=== PATIENT | male | born 1980 | race Caucasian/White ===

== ENCOUNTER 2019-08-10 20:09 | Emergency (ER) | payer SELFPAY ==
[2019-08-10] MEDS ORDERED: BENZONATATE 100 MG CAPSULE PO STA (20:26)
[2019-08-10] MEDS ORDERED: ACETAMINOPHEN 325 MG TABLET PO STA (20:26)
--- NOTE | 2019-08-10 20:30 | ED Physician Documentation ---
History of Present Illness - Stated complaint Stated Complaint: CP/LIMBS HOT AND COLD/COUGH - Chief complaint Chief Complaint: Cardiac - Additonal information Additional information: This is a 39-year-old male with history of diabetes who presents with some chest discomfort after coughing fit. Patient has had coughing fits for the last 3 to 4 weeks, he states that at times he will cough repeatedly to the point where he will throw up or feel lightheaded. Tonight he coughed so long that he felt very lightheaded like he was on the verge of passing out. Now he has some soreness along the base of his ribs, he also feels like his extremities are hot and cold. He denies any known cardiac history. He is not currently taking medications for his diabetes because he had not been able to see her primary care provider recently. Review of Systems Constitutional: denies: Fever Nose: denies: Rhinorrhea / runny nose Throat: denies: Sore throat Cardiac: reports: Chest pain / pressure Respiratory: reports: Cough. denies: Dyspnea GI: denies: Abdominal Pain : denies: Dysuria Skin: denies: Rash PD PAST MEDICAL HISTORY - Past Medical History Cardiovascular: Hypertension Endocrine/Autoimmune: Type 2 diabetes GI: GERD, Chronic diarrhea - Past Surgical History Past Surgical History: No - Present Medications Home Medications: Ambulatory Orders Medication Instructions Recorded Confirmed Lisinopril 10 mg PO DAILY #30 tablet 02/13/15 08/05/15 raNITIdine HCl [Zantac] 150 mg PO BID 28 Days tablet 02/13/15 08/05/15 metFORMIN [Glucophage] 1,000 mg PO BIDWM 07/03/15 08/05/15 HYDROcod/ACETAM 5/325 [[place] 5/325] 1 - 2 ea PO Q6H PRN #10 tablet 08/05/15 Ondansetron HCl [Zofran] 4 mg PO Q6H PRN #10 tablet 08/05/15 Pravastatin Sodium 40 mg PO DAILY 08/05/15 08/05/15 Esomeprazole Magnesium [Nexium] 40 mg PO DAILY #30 capsule. 03/20/16 Famotidine [Pepcid] 20 mg PO BID #30 tablet 03/20/16 Hydrocodone/Acetaminophen 1 - 2 each PO Q6H PRN #10 tablet 03/20/16 [Hydrocodon-Acetaminophen 5-325] Ondansetron Odt [Zofran] 4 mg TL Q6H PRN #10 tablet 03/20/16 Benzonatate 200 mg PO TID PRN #21 capsule 08/10/19 Blood Sugar Diagnostic [Glucometer 1 each MC TID #30 strip 08/10/19 Strips] Blood-Glucose Meter [Glucometer] 1 each MC TID #1 each 08/10/19 metFORMIN [Glucophage] 500 mg PO BIDWM #60 tablet 08/10/19 - Allergies Allergies/Adverse Reactions: Allergies Allergy/AdvReac Type Severity Reaction Status Date / Time Sulfa (Sulfonamide Allergy Unknown Verified 08/10/19 20:13 Antibiotics) - Social History Does the pt smoke?: Yes Smoking Status: Current every day smoker Does the pt drink ETOH?: No Does the pt have substance abuse?: Yes - Immunizations Immunizations are current?: Yes - POLST Patient has POLST: No PD ED PE NORMAL - Vitals Vital signs reviewed: Yes - General General: Alert and oriented X 3, No acute distress - HEENT HEENT: PERRL - Neck Neck: Supple, no meningeal sign - Cardiac Cardiac: RRR, No murmur - Respiratory Respiratory: Clear bilaterally - Abdomen Abdomen: Soft, Non tender, Non distended - Derm Derm: Warm and dry - Extremities Extremities: No deformity - Neuro Neuro: Alert and oriented X 3 - Psych Psych: Normal mood, Normal affect Results - Vitals Vitals: Vital Signs - 24 hr 08/10/19 08/10/19 20:13 21:16 Temperature 36.5 C Heart Rate 84 72 Respiratory 18 18 Rate Blood Pressure 170/92 H 138/77 H O2 Saturation 96 95 Oxygen O2 Source Room air - EKG (time done) 20:12 Other comments: Other comments (Rate 81, rhythm sinus, there is less than [address] elevation in V2 V3, within normal limits for patient's age and sex, there are no abnormal T wave inversions, no ST depressions, QTC 402) - Labs Labs: Laboratory Tests 08/10/19 08/10/19 08/10/19 20:26 20:26 20:26 WBC 14.7 H RBC 6.21 H Hgb 19.0 H Hct 53.9 H MCV 86.8 MCH 30.6 MCHC 35.3 RDW 12.5 Plt Count 318 MPV 9.4 Neut # (Auto) 9.4 H Lymph # (Auto) 4.1 H [place] # (Auto) 0.8 Eos # (Auto) 0.2 Baso # (Auto) 0.1 Absolute Nucleated RBC 0.00 Nucleated RBC % 0.0 Sodium 133 L Potassium 3.6 Chloride 99 L Carbon Dioxide 22 Anion Gap 12.0 BUN 12 Creatinine 0.9 Estimated GFR (MDRD) 94 Glucose 297 H Calcium 9.1 Total Bilirubin 0.5 AST 29 ALT 36 Alkaline Phosphatase 61 Troponin I High Sens 7.1 Total Protein 7.3 Albumin 3.8 Globulin 3.5 Albumin/Globulin Ratio 1.1 Lipase 34 - Rads (name of study) CXR Radiology: Other (No acute cardiopulmonary abnormality) PD MEDICAL DECISION MAKING - ED course Complexity details: considered differential (ACS, dysrhythmia, muscle strain, pertussis, URI, gastritis, cholecystitis, pancreatitis) ED course: Patient is well-appearing on exam, lungs are clear and vital signs are unremarkable. His EKG shows no convincing signs of ischemia or dysrhythmia, chest x-ray shows no acute cardiopulmonary abnormality. Labs show hyperglycemia as well as signs of dehydration with an elevated hemoglobin. He does have an elevated white blood cell count, but he has no signs of pneumonia, his abdomen is nontender on repeat evaluation, he has no focal right upper quadrant tenderness, and given his pain began after coughing, I highly doubt abdominal acute pathology. This may be demargination from the coughing fit and stress, additionally his dehydration may be contributing to this as well. He was given Tessalon Perles as well as Tylenol, and he had very good improvement in his symptoms. His high-sensitivity troponin is negative, and overall his presentation is more concerning for strain or pertussis (now weeks out, no abx tx indicated) given that his discomfort began after coughing. I did discuss with him that he needs to follow-up with his primary care provider, and is he needs to restart his diabetes medications. I did give him prescription for his metformin as well as a glucometer and test strips, as well as Tessalon Perles for his symptoms. Patient agrees with this plan, and after reviewing precautions with him he was discharged home in the care of family. Departure - Departure Disposition: 01 Home, Self Care Clinical Impression: Chest pain, Hyperglycemia Condition: Good Instructions: ED Chest Pain Atypical Unkn Cause Follow-Up: Your,PCP [Other] - Within 1 week Prescriptions: Benzonatate 200 mg PO TID PRN #21 capsule PRN Reason: Cough Blood Sugar Diagnostic [Glucometer Strips] 1 each MC TID #30 strip Blood-Glucose Meter [Glucometer] 1 each MC TID #1 each metFORMIN [Glucophage] 500 mg PO BIDWM #60 tablet Comments: You were seen today for some chest pain after coughing. We do not see signs of rib fractures/pneumonia, or strain in your heart on your work up. You do have elevated blood sugar, your sugar was 297 today. You also looked a little bit dehydrated on your labs. Please drink plenty of fluids, restart her metformin, and follow-up with your primary care provider as soon as possible for further evaluation and treatment of your diabetes. If you are developing shortness of breath, increased abdominal pain, increasing chest pain, or any other concerning symptoms return to the emergency department
[2019-08-10 20:33] LABS: BASOPHILS # (AUTO) 0.1 10^3/uL (0.0-0.1); BASOPHILS % (AUTO) 0.7 %; EOSINOPHILS # (AUTO) 0.2 10^3/uL (0.0-0.7); EOSINOPHILS % (AUTO) 1.2 %; LYMPHOCYTES # (AUTO) 4.1 10^3/uL (1.5-3.5); LYMPHOCYTES % (AUTO) 27.8 %; MEAN CORPUSCULAR HEMOGLOBIN 30.6 pg (27.0-31.0); MEAN CORPUSCULAR HGB CONC 35.3 g/dL (32.0-36.0); MEAN CORPUSCULAR VOLUME 86.8 fL (80.0-94.0); MEAN PLATELET VOLUME 9.4 fL (7.4-11.4); MONOCYTES # (AUTO) 0.8 10^3/uL (0.0-1.0); MONOCYTES % (AUTO) 5.5 %; NEUTROPHILS # (AUTO) 9.4 10^3/uL (1.5-6.6); NEUTROPHILS % (AUTO) 64.1 %; PLT - PLATELET COUNT 318 10^3/uL (130-450); RED BLOOD COUNT 6.21 10^6/uL (4.70-6.10); RED CELL DISTRIBUTION WIDTH 12.5 % (12.0-15.0); WHITE BLOOD COUNT 14.7 x10^3/uL (4.8-10.8)
[2019-08-10 20:49] LABS: ALBUMIN 3.8 g/dL (3.2-5.5); ALBUMIN/GLOBULIN RATIO 1.1 (1.0-2.2); BILIRUBIN,TOTAL 0.5 mg/dL (0.2-1.0); CALCIUM 9.1 mg/dL (8.5-10.3); CREATININE 0.9 mg/dL (0.6-1.2); TOTAL PROTEIN 7.3 g/dL (6.7-8.2)
[2019-08-10 21:19] VITALS: BP 138/77
--- NOTE | 2019-08-10 21:32 | XRAY Report ---
Reason: cough Procedure Date: 08/10/2019 Accession Number: [id number] / [id number] Procedure: XR - Chest 2 View X-Ray CPT Code: 60247 Final Report FULL RESULT: EXAM: CHEST RADIOGRAPHY EXAM DATE: 08/10/2019 08:57 PM. CLINICAL HISTORY: Cough. COMPARISON: Chest radiograph from 03/20/2016. TECHNIQUE: 2 views. FINDINGS: Lungs/Pleura: No focal airspace opacities. No pleural effusion or pneumothorax. Mediastinum: Cardiomediastinal silhouette is within normal limits. Pulmonary vasculature is unremarkable. Other: None. IMPRESSION: No acute cardiopulmonary abnormality. [facility]
== END 2019-08-10 22:51 | disposition home or self-care (01) ==
LOC: ED 20:09
DX: R07.89 Other chest pain (principal); E11.65 Type 2 diabetes mellitus with hyperglycemia; T38.3X6A Underdosing of insulin and oral hypoglycemic [antidiabetic] drugs, initial encounter; Z91.128 Patient's intentional underdosing of medication regimen for other reason; Z79.84 Long term (current) use of oral hypoglycemic drugs; E86.0 Dehydration; D72.829 Elevated white blood cell count, unspecified; I10 Essential (primary) hypertension; F17.200 Nicotine dependence, unspecified, uncomplicated
CPT/HCPCS: 36415; 71046; 80053; 83690; 84484; 85025; 99283; 99284; A9270; 93005

== ENCOUNTER 2020-07-20 21:05 | Outpatient (CLI) | payer SELFPAY | END 2020-07-20 21:06 | disposition home or self-care (01) | LOC: COV 21:05 | PROVIDERS: ATTEND Family Medicine | DX: R05 Cough (principal); R06.02 Shortness of breath; R53.83 Other fatigue; J02.9 Acute pharyngitis, unspecified; R19.7 Diarrhea, unspecified; R09.81 Nasal congestion; R11.2 Nausea with vomiting, unspecified; Z20.828 Contact with and (suspected) exposure to other viral communicable diseases ==

== ENCOUNTER 2022-09-12 09:50 | Outpatient (CLI) | payer OTHER ==
[2022-09-12 12:20] LABS: BASOPHILS # (AUTO) 0.1 10^3/uL (0.0-0.1); BASOPHILS % (AUTO) 0.8 %; EOSINOPHILS # (AUTO) 0.3 10^3/uL (0.0-0.7); EOSINOPHILS % (AUTO) 2.1 %; HCT - HEMATOCRIT 54.4 % (42.0-52.0); HGB - HEMOGLOBIN 18.5 g/dL (14.0-18.0); LYMPHOCYTES # (AUTO) 4.1 10^3/uL (1.5-3.5); LYMPHOCYTES % (AUTO) 30.4 %; MEAN CORPUSCULAR HEMOGLOBIN 29.9 pg (27.0-31.0); MEAN PLATELET VOLUME 9.9 fL (7.4-11.4); MONOCYTES # (AUTO) 0.9 10^3/uL (0.0-1.0); NEUTROPHILS # (AUTO) 7.9 10^3/uL (1.5-6.6); PLT - PLATELET COUNT 290 10^3/uL (130-450); RED BLOOD COUNT 6.18 10^6/uL (4.70-6.10); RED CELL DISTRIBUTION WIDTH 12.2 % (12.0-15.0); WHITE BLOOD COUNT 13.3 x10^3/uL (4.8-10.8)
[2022-09-12 12:57] LABS: ALBUMIN 3.7 g/dL (3.2-5.5); ALBUMIN/GLOBULIN RATIO 1.1 (1.0-2.2); ALKALINE PHOSPHATASE 56 IU/L (42-121); ALT ALANINE AMINOTRANSFERASE 26 IU/L (10-60); AST ASPARTATE AMINOTRANSFERASE 20 IU/L (10-42); BILIRUBIN,TOTAL 0.6 mg/dL (0.2-1.0); BUN - BLOOD UREA NITROGEN 17 mg/dL (6-20); CARBON DIOXIDE - CO2 23 mmol/L (21-32); CHLORIDE 101 mmol/L (101-111); CHOL/HDL RATIO 6.3 (<5.0); CHOLESTEROL 169 mg/dL; CREATININE 0.9 mg/dL (0.6-1.2); GFR - MDRD 93 (>89); GLUCOSE 268 mg/dL (70-100); HDL CHOLESTEROL 27 mg/dL; POTASSIUM 4.2 mmol/L (3.5-5.0); SODIUM 134 mmol/L (135-145); TOTAL PROTEIN 7.2 g/dL (6.7-8.2); TRIGLYCERIDES 564 mg/dL
[2022-09-12 13:02] LABS: THYROID STIMULATING HORMONE 2.19 uIU/mL (0.34-5.60)
[2022-09-12 13:05] LABS: ESTIMATED AVERAGE GLUCOSE 246 mg/dL (70-100); HEMOGLOBIN A1c% 10.2 % (4.27-6.07)
[2022-09-12 13:39] LABS: LDL CHOLESTEROL,DIRECT 68 mg/dL; LDLD/HDL RATIO 2.5 (<3.6)
== END 2022-09-12 09:51 | disposition home or self-care (01) ==
LOC: LAB.N 09:50
PROVIDERS: ATTEND Nurse Practitioner Family
DX: E78.49 Other hyperlipidemia (principal); I21.09 ST elevation (STEMI) myocardial infarction involving other coronary artery of anterior wall; E11.65 Type 2 diabetes mellitus with hyperglycemia; I10 Essential (primary) hypertension
CPT/HCPCS: 36415; 80053; 80061; 83036; 83721; 84443; 85025

== ENCOUNTER 2022-10-14 07:35 | Outpatient (CLI) | payer OTHER ==
[2022-10-14 12:52] LABS: BASOPHILS # (AUTO) 0.1 10^3/uL (0.0-0.1); BASOPHILS % (AUTO) 0.6 %; EOSINOPHILS # (AUTO) 0.2 10^3/uL (0.0-0.7); EOSINOPHILS % (AUTO) 1.4 %; HCT - HEMATOCRIT 52.6 % (42.0-52.0); HGB - HEMOGLOBIN 17.9 g/dL (14.0-18.0); LYMPHOCYTES # (AUTO) 3.5 10^3/uL (1.5-3.5); LYMPHOCYTES % (AUTO) 30.2 %; MEAN CORPUSCULAR HEMOGLOBIN 30.1 pg (27.0-31.0); MEAN CORPUSCULAR VOLUME 88.6 fL (80.0-94.0); MEAN PLATELET VOLUME 9.9 fL (7.4-11.4); MONOCYTES # (AUTO) 0.7 10^3/uL (0.0-1.0); NEUTROPHILS # (AUTO) 7.2 10^3/uL (1.5-6.6); NEUTROPHILS % (AUTO) 61.3 %; PLT - PLATELET COUNT 278 10^3/uL (130-450); RED BLOOD COUNT 5.94 10^6/uL (4.70-6.10); RED CELL DISTRIBUTION WIDTH 11.9 % (12.0-15.0); WHITE BLOOD COUNT 11.7 x10^3/uL (4.8-10.8)
[2022-10-14 13:28] LABS: ALBUMIN 3.8 g/dL (3.2-5.5); ALBUMIN/GLOBULIN RATIO 1.2 (1.0-2.2); ALKALINE PHOSPHATASE 53 IU/L (42-121); ALT ALANINE AMINOTRANSFERASE 32 IU/L (10-60); AST ASPARTATE AMINOTRANSFERASE 27 IU/L (10-42); BILIRUBIN,TOTAL 0.6 mg/dL (0.2-1.0); BUN - BLOOD UREA NITROGEN 14 mg/dL (6-20); CALCIUM 8.7 mg/dL (8.5-10.3); CARBON DIOXIDE - CO2 23 mmol/L (21-32); CHLORIDE 102 mmol/L (101-111); CHOL/HDL RATIO 4.7 (<5.0); CHOLESTEROL 121 mg/dL; CREATININE 0.9 mg/dL (0.6-1.2); GFR - MDRD 93 (>89); GLUCOSE 271 mg/dL (70-100); HDL CHOLESTEROL 26 mg/dL; LDL CHOLESTEROL,CALCULATED 31 mg/dL; LDL/HDL RATIO 1.2 (<3.6); POTASSIUM 4.3 mmol/L (3.5-5.0); SODIUM 135 mmol/L (135-145); TRIGLYCERIDES 318 mg/dL; VLDL CHOLESTEROL 64 mg/dL
[2022-10-14 13:55] LABS: ESTIMATED AVERAGE GLUCOSE 249 mg/dL (70-100); HEMOGLOBIN A1c% 10.3 % (4.27-6.07)
== END 2022-10-14 07:36 | disposition home or self-care (01) ==
LOC: LAB.N 07:35
PROVIDERS: ATTEND Nurse Practitioner Family
DX: I25.119 Atherosclerotic heart disease of native coronary artery with unspecified angina pectoris (principal); E11.9 Type 2 diabetes mellitus without complications
CPT/HCPCS: 36415; 80053; 80061; 83036; 83721; 85025

== ENCOUNTER 2023-04-22 07:25 | Outpatient (CLI) | payer OTHER ==
[2023-04-22 12:41] LABS: ESTIMATED AVERAGE GLUCOSE 263 mg/dL (70-100); HEMOGLOBIN A1c% 10.8 % (4.27-6.07)
[2023-04-22 13:02] LABS: ALBUMIN 4.1 g/dL (3.2-5.5); ALBUMIN/GLOBULIN RATIO 1.4 (1.0-2.2); ALKALINE PHOSPHATASE 59 IU/L (42-121); ALT ALANINE AMINOTRANSFERASE 32 IU/L (10-60); AST ASPARTATE AMINOTRANSFERASE 21 IU/L (10-42); BILIRUBIN,TOTAL 0.5 mg/dL (0.2-1.0); BUN - BLOOD UREA NITROGEN 14 mg/dL (6-20); CALCIUM 9.3 mg/dL (8.5-10.3); CARBON DIOXIDE - CO2 25 mmol/L (21-32); CHLORIDE 102 mmol/L (101-111); CHOL/HDL RATIO 6.9 (<5.0); CHOLESTEROL 206 mg/dL; GFR - MDRD 82 (>89); GLUCOSE 233 mg/dL (74-104); HDL CHOLESTEROL 30 mg/dL; POTASSIUM 4.2 mmol/L (3.5-4.5); SODIUM 132 mmol/L (135-145); TRIGLYCERIDES 816 mg/dL (48-352)
[2023-04-22 14:15] LABS: LDL CHOLESTEROL,DIRECT 86 mg/dL (75-193); LDLD/HDL RATIO 2.9 (<3.6)
[2023-04-22 18:48] LABS: CREATININE,URINE 29.5 mg/dL; MICROALBUM/CREATININE RATIO,UR 444.1 ug/mg (<30.0); MICROALBUMIN,URINE 13.1 mg/dL
== END 2023-04-22 07:26 | disposition home or self-care (01) ==
LOC: LAB.N 07:25
PROVIDERS: ATTEND Nurse Practitioner Family
DX: E11.65 Type 2 diabetes mellitus with hyperglycemia (principal); E66.9 Obesity, unspecified; E78.5 Hyperlipidemia, unspecified
CPT/HCPCS: 36415; 80053; 80061; 82043; 82570; 83036; 83721

== ENCOUNTER 2023-07-22 09:21 | Outpatient (CLI) | payer OTHER ==
[2023-07-22 09:51] LABS: BUN - BLOOD UREA NITROGEN 18 mg/dL (6-20); CALCIUM 9.7 mg/dL (8.5-10.3); CARBON DIOXIDE - CO2 23 mmol/L (21-32); CHLORIDE 101 mmol/L (101-111); CHOL/HDL RATIO 6.5 (<5.0); CHOLESTEROL 189 mg/dL; CREATININE 0.9 mg/dL (0.6-1.3); GFR - MDRD 92 (>89); GLUCOSE 323 mg/dL (74-104); HDL CHOLESTEROL 29 mg/dL; POTASSIUM 4.2 mmol/L (3.5-4.5); SODIUM 133 mmol/L (135-145); TRIGLYCERIDES 669 mg/dL (48-352)
[2023-07-22 10:19] LABS: LDL CHOLESTEROL,DIRECT 83 mg/dL (75-193); LDLD/HDL RATIO 2.9 (<3.6)
[2023-07-22 10:36] LABS: ESTIMATED AVERAGE GLUCOSE 255 mg/dL (70-100); HEMOGLOBIN A1c% 10.5 % (4.27-6.07)
== END 2023-07-22 09:22 | disposition home or self-care (01) ==
LOC: LAB 09:21
PROVIDERS: ATTEND Nurse Practitioner Family
DX: E11.65 Type 2 diabetes mellitus with hyperglycemia (principal)
CPT/HCPCS: 36415; 80048; 80061; 83036; 83721

== ENCOUNTER 2023-12-17 08:08 | Outpatient (CLI) | payer OTHER ==
[2023-12-17 12:10] LABS: CALCIUM 9.5 mg/dL (8.5-10.3); POTASSIUM 4.7 mmol/L (3.5-4.5)
[2023-12-17 12:19] LABS: CREATININE,URINE 79.3 mg/dL; MICROALBUM/CREATININE RATIO,UR 363.2 ug/mg (<30.0); MICROALBUMIN,URINE 28.8 mg/dL
[2023-12-17 12:39] LABS: ESTIMATED AVERAGE GLUCOSE 272 mg/dL (70-100); HEMOGLOBIN A1c% 11.1 % (4.27-6.07)
== END 2023-12-17 08:09 | disposition home or self-care (01) ==
LOC: LAB.N 08:08
PROVIDERS: ATTEND Nurse Practitioner Family
DX: E11.9 Type 2 diabetes mellitus without complications (principal)
CPT/HCPCS: 36415; 80048; 82043; 82570; 83036